=== PATIENT | female | born 2000 | race African-American/Black ===

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

== ENCOUNTER 2023-04-06 21:00 | Emergency (ER) | payer OTHER ==
[2023-04-06 21:25] VITALS: BP 123/75; PULSE 70; RESP 16; TEMP 98; BMI 23.9
== END 2023-04-06 21:52 | disposition home or self-care (01) ==
LOC: FER 21:00
DX: O9A.211 Injury, poisoning and certain other consequences of external causes complicating pregnancy, first trimester (principal); S06.0X9A Concussion with loss of consciousness of unspecified duration, initial encounter; V47.5XXA Car driver injured in collision with fixed or stationary object in traffic accident, initial encounter; Y93.I9 Activity, other involving external motion; Y92.410 Unspecified street and highway as the place of occurrence of the external cause; Z3A.01 Less than 8 weeks gestation of pregnancy
CPT/HCPCS: 99282-25